=== PATIENT | female | born 1940 | race Caucasian/White ===

== ENCOUNTER → 2019-05-25 | Outpatient (CLI) | payer MEDICARE, BC ==
[~2019-05-25] MED LIST: B12,B-12,B 12500 MC1 PO; COLACE100 MG PO; FEROSUL325 MG PO; LISINOPRIL5 MG PO; NATURE'S BLEND F1 MG PO; PANTOPRAZOLE SO40 MG PO
== END | disposition home or self-care (01) ==
LOC: LAB 15:00 → US 15:00
DX: M51.34 Other intervertebral disc degeneration, thoracic region (principal); M85.88 Other specified disorders of bone density and structure, other site

== ENCOUNTER 2022-05-11 13:58 | Emergency (ER) | payer MEDICARE, BC ==
[~2022-05-11] VITALS: Ht 157.4 cm; Wt 36.3 kg
== END 2022-05-11 15:27 | disposition home or self-care (01) ==
LOC: ED 13:58
DX: S51.812A Laceration without foreign body of left forearm, initial encounter (principal); Z90.49 Acquired absence of other specified parts of digestive tract; Z90.710 Acquired absence of both cervix and uterus; Z88.8 Allergy status to other drugs, medicaments and biological substances; Z88.2 Allergy status to sulfonamides; X58.XXXA Exposure to other specified factors, initial encounter; Y93.89 Activity, other specified; Y92.89 Other specified places as the place of occurrence of the external cause; Y99.8 Other external cause status